=== PATIENT | male | born 2000 | race Two or more races ===

== ENCOUNTER → 2020-11-07 | Outpatient (CLI) | payer OTHER ==
--- NOTE | 2020-11-07 16:56 | REP ---
INDICATION: LOGAN OF THYROID COMPARISON: None. TECHNIQUE: Gould scale and color evaluation of the thyroid gland using the linear high frequency transducer. FINDINGS: The thyroid gland is normal in contour, shape, size, and echogenicity. No nodule/mass or cystic abnormalities are appreciated. Right thyroid lobe measures 4.9 x 1.5 x 1.3 cm. Isthmus measures 2.8 mm in width. Left thyroid lobe measures 4.5 x 1.7 x 1.1 cm. IMPRESSION: Normal thyroid ultrasound. <Electronically signed by Montana Mcallister > 11/07/20 5869
== END ==
LOC: M RAD 11:54
PROVIDERS: ATTEND Otolaryngology
DX: D44.0 Neoplasm of uncertain behavior of thyroid gland (principal)

== ENCOUNTER 2020-12-16 08:52 | Day surgery (SDC) | payer OTHER ==
[~2020-12-16] VITALS: Ht 172.7 cm; Wt 72.2 kg
[~2020-12-16 08:52] MED LIST: LR 1,000 ML IV ONE
--- OUTSIDE RECORDS SUMMARY | 2020-12-16 08:55 | CCD | Continuity of Care Document ---
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 Marshall de la fuente MD Onset: 10/24/2020 Enlargement of tonsil or adenoid Marshall Diamond MD Onset: 10/24/2020 Social History Type Date Description Comments Sex Unknown ETOH Use Denies alcohol use Tobacco Use Start: Unknown Non Smoker Recreational Drug Use Denies Drug Use Allergies and adverse reactions Description No Known Drug Allergies Medications Active Medications SIG Qnty Indications Ordering Provide r Date No Active Medications Unknown 03/2020 History Medications Augmentin 500-125mg Tablets 1 by mouth twice a day 20tabs J35.03 Marshall Diamond MD 11/13/2020 - No Active Medications Unknown 03/2020 - 11/13/2020 No Active Medications Unknown - 09/18/2020 Prednisone 10mg Tablets 2 po bid for 5 days 1 po tid for 5 days 1 po bid for 5 days 1 po q d for 5 days 50tabs Boone Huitron MD 09/18/2020 - 10/24/2020 Immunizations Description No Information Available Vital Signs Date Vital Result Comment 11/26/2020 10:41am BP Systolic 130 mmHg BP Diastolic 80 mmHg Heart Rate 64 /min O2 % BldC Oximetry 98 % Height 67 inches 5'7" Weight 163.00 lb BMI (Body Mass Index) 25.5 kg/m2 [place] Body Weight 148 lb Weight 73.937 kg BSA (Body Surface Area) 1.85 m2 11/13/2020 8:27am BP Systolic 100 mmHg BP Diastolic 70 mmHg Heart Rate 60 /min O2 % BldC Oximetry 99 % Height 67 inches 5'7" Weight 163.00 lb BMI (Body Mass Index) 25.5 kg/m2 [place] Body Weight 148 lb Weight 73.937 kg BSA (Body Surface Area) 1.85 m2 Results Description No Information Available Procedures Date Code Description Status 11/26/2020 56726 Office/Outpatient Established Mo d MDM 30-39 Min Completed 11/13/2020 41186 Office/Outpatient Established Mo d MDM 30-39 Min Completed 10/24/2020 52823 Office/Outpatient Established Lo w MDM 20-29 Min Completed 10/07/2020 96070 Office/Outpatient Established Lo w MDM 20-29 Min Completed 09/18/2020 60552 Office/Outpatient New Moderate M DM 45-59 Minutes Completed Medical Devices Description No Information Available Encounters Type Date Location Provider Dx Diagnosis Office Visit 11/26/2020 10:45a [facility] [place] J35.03 Chronic tonsillitis and adenoiditis R59.9 Enlarged lymph nodes, unspec ified Office Visit 11/13/2020 8:30a [facility] [place] J35.03 Chronic tonsillitis and adenoiditis D44.0 Neoplasm of uncertain behavi or of thyroid gland R59.9 Enlarged lymph nodes, unspec ified Office Visit 10/24/2020 1:15p [facility] [place] 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.03 Chronic tonsillitis and festus oiditis Office Visit 10/07/2020 10:00a [facility] Boone Huitron MD J35.01 Chronic tonsillitis Office Visit 09/18/2020 10:00a [facility] Boone Huitron MD J03.91 Acute recurrent tonsillitis, unspecified Assessments Date Code Description Provider 11/26/2020 J35.03 Chronic tonsillitis and adenoidi tis Marshall Diamond MD 11/26/2020 R59.9 Enlarged lymph nodes, unspecifie d Marshall Diamond MD 11/13/2020 J35.03 Chronic tonsillitis and adenoidi tis Marshall Diamond MD 11/13/2020 D44.0 Neoplasm of uncertain behavior o f thyroid gland Marshall Diamond MD 11/13/2020 R59.9 Enlarged lymph nodes, unspecifie d Marshall Diamond MD 10/24/2020 D44.0 Neoplasm of uncertain behavior o f thyroid gland Marshall Diamond MD 10/24/2020 J35.03 Chronic tonsillitis and adenoidi tis Marshall Diamond MD 10/07/2020 J35.01 Chronic tonsillitis Boone nicholson MD 09/18/2020 J03.91 Acute recurrent tonsillitis, uns pecified Boone Huitron MD Plan of Treatment Future Appointment(s):* 12/16/2020 10:45 am - Marshall Diamond MD at [facility] Functional Status Description No Information Available Mental Status Description No Information Available Referrals Refer to Reason for Referral Status Appt Date Marshall Diamond M.D. HX pharyngitis/tonsillitis Scheduled 09/18/[address] [address] [phone]
--- OUTSIDE RECORDS SUMMARY | 2020-12-16 08:55 | CCD | Continuity of Care Document ---
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 Marshall de la fuente MD Onset: 10/24/2020 Enlargement of tonsil or adenoid Marshall Diamond MD Onset: 10/24/2020 Social History Type Date Description Comments Sex Unknown ETOH Use Denies alcohol use Tobacco Use Start: Unknown Non Smoker Recreational Drug Use Denies Drug Use Allergies, Adverse Reactions, Alerts Description No Known Drug Allergies Medications Active Medications SIG Qnty Indications Ordering Provide r Date Augmentin 500-125mg Tablets 1 by mouth twice a day 20tabs J35.03 Marshall Diamond MD 11/13/2020 No Active Medications Unknown 03/2020 History Medications No Active Medications Unknown - 09/18/2020 Prednisone 10mg Tablets 2 po bid for 5 days 1 po tid for 5 days 1 po bid for 5 days 1 po q d for 5 days 50tabs Boone Huitron MD 09/18/2020 - 10/24/2020 Immunizations Description No Information Available Vital Signs Date Vital Result Comment 11/13/2020 8:27am BP Systolic 100 mmHg BP Diastolic 70 mmHg Heart Rate 60 /min O2 % BldC Oximetry 99 % Height 67 inches 5'7" Weight 163.00 lb BMI (Body Mass Index) 25.5 kg/m2 [place] Body Weight 148 lb Weight 73.937 kg BSA (Body Surface Area) 1.85 m2 10/24/2020 1:21pm BP Systolic 118 mmHg BP Diastolic 70 mmHg Heart Rate 61 /min O2 % BldC Oximetry 97 % Height 67 inches 5'7" Weight 155.00 lb BMI (Body Mass Index) 24.3 kg/m2 [place] Body Weight 148 lb Weight 70.308 kg BSA (Body Surface Area) 1.81 m2 Results Description No Information Available Procedures Date Code Description Status 10/24/2020 03344 Office/Outpatient Established Lo w MDM 20-29 Min Completed 10/07/2020 52815 Office/Outpatient Established Lo w MDM 20-29 Min Completed 09/18/2020 21772 Office/Outpatient New Moderate M DM 45-59 Minutes Completed Medical Devices Description No Information Available Encounters Type Date Location Provider Dx Diagnosis Office Visit 10/24/2020 1:15p [facility] [place] 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.03 Chronic tonsillitis and festus oiditis Office Visit 10/07/2020 10:00a [facility] Boone Huitron MD J35.01 Chronic tonsillitis Office Visit 09/18/2020 10:00a [facility] Boone Huitron MD J03.91 Acute recurrent tonsillitis, unspecified Assessments Date Code Description Provider 11/13/2020 J35.03 Chronic tonsillitis and adenoidi tis Marshall Diamond MD 11/13/2020 D44.0 Neoplasm of uncertain behavior o f thyroid gland Marshall Diamond MD 10/24/2020 D44.0 Neoplasm of uncertain behavior o f thyroid gland Marshall Diamond MD 10/24/2020 J35.03 Chronic tonsillitis and adenoidi tis Marshall Diamond MD 10/07/2020 J35.01 Chronic tonsillitis Boone nicholson MD 09/18/2020 J03.91 Acute recurrent tonsillitis, uns pecified Boone Huitron MD Plan of Treatment Future Appointment(s):* 11/26/2020 10:45 am - Marshall Diamond MD at [facility] 11/13/2020 - Marshall Diamond MD* J35.03 Chronic tonsillitis and adenoiditis* New Medication:* Augmentin 500-125 mg - 1 by mouth twice a day * Comments:* Due to the current appearance of Melvin's tonsils, we will place him on 10 days of Augmentin and follow up with him after. 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 His throat is no longer sore. I will re-evaluate in the future if this returns. Functional Status Description No Information Available Mental Status Description No Information Available Referrals Refer to Reason for Referral Status Appt Date Marshall Diamond M.D. HX pharyngitis/tonsillitis Scheduled 09/18/[address] [address] [phone]
--- OUTSIDE RECORDS SUMMARY | 2020-12-16 08:55 | CCD | Continuity of Care Document ---
Author Author Melvin DIAMOND MD Organization Unknown Address [address] [facility] [address] [place] [address] Phone [phone] Care Team Providers Care Client Services Analyst Name Role Phone Keisha Harvey Unavailable Problems [...] day 20tabs J35.03 Marshall Diamond MD 11/13/2020 History Medications No Active Medications Unknown 03/2020 - 11/13/2020 [...] lb BMI (Body Mass Index) 25.5 kg/m2 [place] Body Weight 148 lb Weight 73.937 kg BSA (Body Surface Area) 1.85 m2 10/24/2020 1:21pm BP Systolic 118 mmHg BP Diastolic 70 mmHg Heart Rate 61 /min O2 % BldC Oximetry 97 % Height 67 inches 5'7" Weight 155.00 lb BMI (Body Mass Index) 24.3 kg/m2 [place] Body Weight 148 lb Weight 70.308 kg BSA (Body Surface Area) 1.81 m2 Results Description No Information Available Procedures Date Code Description Status 11/13/2020 64861 Office/Outpatient Established Mo d MDM 30-39 Min Completed 10/24/2020 28049 Office/Outpatient Established Lo w MDM 20-29 Min Completed 10/07/2020 01316 Office/Outpatient Established Lo w MDM 20-29 Min Completed 09/18/2020 16385 Office/Outpatient New Moderate M DM 45-59 Minutes Completed Medical Devices Description No Information Available Encounters Type Date Location Provider Dx Diagnosis Office Visit 11/13/2020 8:30a [facility] [place] J35.03 Chronic tonsillitis and adenoiditis D44.0 Neoplasm of uncertain behavi or of thyroid gland R59.9 Enlarged lymph nodes, unspec ified Office Visit 10/24/2020 1:15p [facility] [place] 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 HX pharyngitis/tonsillitis Scheduled 09/18/[address] [address] [phone]
--- OUTSIDE RECORDS SUMMARY | 2020-12-16 08:55 | CCD | Continuity of Care Document ---
Author Author Melvin HUITRON MD Organization Unknown Address [address] [place] [address] Phone [phone] Care Team Providers Care Sky Cap Name Role Phone Keisha Harvey Unavailable Problems Description No Information Available Social History Type Date Description Comments Sex Unknown ETOH Use Denies alcohol use Tobacco Use Start: Unknown Non Smoker Recreational Drug Use Denies Drug Use Allergies, Adverse Reactions, Alerts Description No Known Drug Allergies Medications Active Medications SIG Qnty Indications Ordering Provide r Date Prednisone 10mg Tablets 2 po bid for 5 days 1 po tid for 5 days 1 po bid for 5 days 1 po q d for 5 days 50tabs Boone Huitron MD 09/18/2020 History Medications No Active Medications Unknown - 09/18/2020 Immunizations Description No Information Available Vital Signs Date Vital Result Comment 09/18/2020 10:12am Height 67 inches 5'7" Weight 160.00 lb BMI (Body Mass Index) 25.1 kg/m2 [place] Body Weight 148 lb Weight 72.576 kg BSA (Body Surface Area) 1.84 m2 Results Description No Information Available Procedures Date Code Description Status 09/18/2020 19757 Office/Outpatient New Moderate M DM 45-59 Minutes Completed Medical Devices Description No Information Available Encounters Type Date Location Provider Dx Diagnosis Office Visit 09/18/2020 10:00a [facility] Boone Huitron MD J03.91 Acute recurrent tonsillitis, unspecified Assessments Date Code Description Provider 09/18/2020 J03.91 Acute recurrent tonsillitis, uns pecified Boone Huitron MD Plan of Treatment Future Appointment(s):* 10/09/2020 10:00 am - Boone Huitron MD at [facility] 09/18/2020 - Boone Huitron MD* J03.91 Acute recurrent tonsillitis, unspecified * Recommendations:* Since he is just resolving a recent episode and shows signs of inflammaiton , will treat with steroids in preparation for future surgery * All * New Medication:* Prednisone 10 mg - 2 po bid for 5 days 1 po tid for 5 days 1 po bid for 5 days 1 po q d for 5 days * No Active Medications - Functional Status Description No Information Available Mental Status Description No Information Available Referrals Refer to Dr Reason for Referral Status Appt Date Boone Huitron M.D. HX pharyngitis/tonsillitis Scheduled 09/18/2020 [facility] [address] [address] [phone]
--- OUTSIDE RECORDS SUMMARY | 2020-12-16 08:55 | CCD | Continuity of Care Document ---
Author Author Melvin DIAMOND MD Organization Unknown Address [address] [facility] [address] [place] [address] Phone [phone] Care Team Providers Care Clinic Office Coordinator Name Role Phone Keisha Harvey Unavailable Problems [...] Available Vital Signs Date Vital Result Comment 10/24/2020 1:21pm BP Systolic 118 mmHg BP Diastolic 70 mmHg Heart Rate 61 /min O2 % BldC Oximetry 97 % Height 67 inches 5'7" Weight 155.00 lb BMI (Body Mass Index) 24.3 kg/m2 [place] Body Weight 148 lb Weight 70.308 kg BSA (Body Surface Area) 1.81 m2 10/07/2020 9:53am Height 67 inches 5'7" Weight 160.00 lb BMI (Body Mass Index) 25.1 kg/m2 [place] Body Weight 148 lb Weight 72.576 kg BSA (Body Surface Area) 1.84 m2 Results Description No Information Available Procedures Date Code Description Status 10/07/2020 06376 Office/Outpatient Established Lo w MDM 20-29 Min Completed 09/18/2020 70482 Office/Outpatient New Moderate M DM 45-59 Minutes Completed Medical Devices Description No Information Available Encounters Type Date Location Provider Dx Diagnosis Office Visit 10/07/2020 10:00a [facility] Boone Huitron MD J35.01 Chronic tonsillitis Office Visit 09/18/2020 10:00a [facility] Boone Huitron MD J03.91 Acute recurrent tonsillitis, unspecified Assessments Date Code Description Provider 10/24/2020 D44.0 Neoplasm of uncertain behavior o f thyroid gland Marshall Diamond MD 10/24/2020 J35.03 Chronic tonsillitis and adenoidi tis Marshall Diamond MD 10/07/2020 J35.01 Chronic tonsillitis Boone nicholson MD 09/18/2020 J03.91 Acute recurrent tonsillitis, uns pecified Boone Huitron MD Plan of Treatment 10/24/2020 - Marshall Diamond MD* 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 Today on examination we found a 1.5cm nodule in the right superior pole. We will schedule him for an ultrasound and follow up with the results. * J35.03 Chronic tonsillitis and adenoiditis* Comments:* Due to his recent infection, we discussed the importance of being infection free for 3-4 weeks prior to surgery. We will discuss this further at the ultrasound follow up appointment. Functional Status Description No Information Available Mental Status Description No Information Available Referrals Refer to Reason for Referral Status Appt Date Boone Huitron M.D. HX pharyngitis/tonsillitis Scheduled 09/18/2020 [facility] [address] [address] [phone]
--- OUTSIDE RECORDS SUMMARY | 2020-12-16 08:55 | CCD | Continuity of Care Document ---
Author Author Melvin HUITRON MD Organization Unknown Address [address] [place] [address] Phone [phone] Care Team Providers Care Director Of Clinical Trials Name Role Phone Keisha Harvey Unavailable Problems [...] Available Vital Signs Date Vital Result Comment 10/07/2020 9:53am Height 67 inches 5'7" Weight 160.00 lb BMI (Body Mass Index) 25.1 kg/m2 [place] Body Weight 148 lb Weight 72.576 kg BSA (Body Surface Area) 1.84 m2 09/18/2020 10:12am Height 67 inches 5'7" Weight 160.00 lb BMI (Body Mass Index) 25.1 kg/m2 [place] Body Weight 148 lb Weight 72.576 kg BSA (Body Surface Area) 1.84 m2 Results Description No Information Available Procedures Date Code Description Status 10/07/2020 04420 Office/Outpatient Established Lo w MDM 20-29 Min Completed 09/18/2020 27398 Office/Outpatient New Moderate M DM 45-59 Minutes Completed Medical Devices Description No Information Available Encounters Type Date Location Provider Dx Diagnosis Office Visit 10/07/2020 10:00a [facility] Boone Huitron MD J35.01 Chronic tonsillitis Office Visit 09/18/2020 10:00a [facility] Boone Huitron MD J03.91 Acute recurrent tonsillitis, unspecified Assessments Date Code Description Provider 10/07/2020 J35.01 Chronic tonsillitis Boone nicholson MD 09/18/2020 J03.91 Acute recurrent tonsillitis, uns pecified Boone Huitron MD Plan of Treatment 09/18/2020 - Boone Huitron MD* J03.91 Acute [...] Boone Huitron M.D. HX pharyngitis/tonsillitis Scheduled 09/18/2020 [facility] [address] [address] [phone]
--- OUTSIDE RECORDS SUMMARY | 2020-12-16 08:55 | CCD | Continuity of Care Document ---
Author Author Melvin DIAMOND MD Organization Unknown Address [address] [facility] [address] [place] [address] Phone [phone] Care Team Providers Care Boat Repairer Name Role Phone Keisha Harvey Unavailable Problems [...] lb BMI (Body Mass Index) 25.5 kg/m2 [place] Body Weight 148 lb Weight 73.937 kg BSA (Body Surface Area) 1.85 m2 11/13/2020 8:27am BP Systolic 100 mmHg BP Diastolic 70 mmHg Heart Rate 60 /min O2 % BldC Oximetry 99 % Height 67 inches 5'7" Weight 163.00 lb BMI (Body Mass Index) 25.5 kg/m2 [place] Body Weight 148 lb Weight 73.937 kg BSA (Body Surface Area) 1.85 m2 Results Description No Information Available Procedures Date Code Description Status 11/26/2020 19974 Office/Outpatient Established Mo d MDM 30-39 Min Completed 11/13/2020 74749 Office/Outpatient Established Mo d MDM 30-39 Min Completed 10/24/2020 20089 Office/Outpatient Established Lo w MDM 20-29 Min Completed 10/07/2020 34390 Office/Outpatient Established Lo w MDM 20-29 Min Completed 09/18/2020 65799 Office/Outpatient New Moderate M DM 45-59 Minutes Completed Medical Devices Description No Information Available Encounters Type Date Location Provider Dx Diagnosis Office Visit 11/26/2020 10:45a [facility] [place] J35.03 Chronic tonsillitis and adenoiditis R59.9 Enlarged lymph nodes, unspec ified Office Visit 11/13/2020 8:30a [facility] [place] J35.03 Chronic tonsillitis and adenoiditis D44.0 Neoplasm of uncertain behavi or of thyroid gland R59.9 Enlarged lymph nodes, unspec ified Office Visit 10/24/2020 1:15p [facility] [place] 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 HX pharyngitis/tonsillitis Scheduled 09/18/[address] [address] [phone]
--- OUTSIDE RECORDS SUMMARY | 2020-12-16 08:55 | CCD | Continuity of Care Document ---
Author Author Melvin DIAMOND MD Organization Unknown Address [address] [facility] [address] [place] [address] Phone [phone] Care Team Providers Care Finished Cloth Checker Name Role Phone Keisha Harvey Unavailable Problems [...] po q d for 5 days 50tabs oBone Huitron MD 09/18/2020 - 10/24/2020 Immunizations Description No Information Available Vital Signs Date Vital Result Comment 11/26/2020 10:41am BP Systolic 130 mmHg BP Diastolic 80 mmHg Heart Rate 64 /min O2 % BldC Oximetry 98 % Height 67 inches 5'7" Weight 163.00 lb BMI (Body Mass Index) 25.5 kg/m2 [place] Body Weight 148 lb Weight 73.937 kg BSA (Body Surface Area) 1.85 m2 11/13/2020 8:27am BP Systolic 100 mmHg BP Diastolic 70 mmHg Heart Rate 60 /min O2 % BldC Oximetry 99 % Height 67 inches 5'7" Weight 163.00 lb BMI (Body Mass Index) 25.5 kg/m2 [place] Body Weight 148 lb Weight 73.937 kg BSA (Body Surface Area) 1.85 m2 Results Description No Information Available Procedures Date Code Description Status 11/26/2020 30391 Office/Outpatient Established Mo d MDM 30-39 Min Completed 11/13/2020 56136 Office/Outpatient Established Mo d MDM 30-39 Min Completed 10/24/2020 30076 Office/Outpatient Established Lo w MDM 20-29 Min Completed 10/07/2020 02099 Office/Outpatient Established Lo w MDM 20-29 Min Completed 09/18/2020 97598 Office/Outpatient New Moderate M DM 45-59 Minutes Completed Medical Devices Description No Information Available Encounters Type Date Location Provider Dx Diagnosis Office Visit 11/26/2020 10:45a [facility] [place] J35.03 Chronic tonsillitis and adenoiditis R59.9 Enlarged lymph nodes, unspec ified Office Visit 11/13/2020 8:30a [facility] [place] J35.03 Chronic tonsillitis and adenoiditis D44.0 Neoplasm of uncertain behavi or of thyroid gland R59.9 Enlarged lymph nodes, unspec ified Office Visit 10/24/2020 1:15p [facility] [place] 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 HX pharyngitis/tonsillitis Scheduled 09/18/[address] [address] [phone]
--- OUTSIDE RECORDS SUMMARY | 2020-12-16 08:55 | CCD | Continuity of Care Document ---
Author Author Melvin HUITRON MD Organization Unknown Address [address] [place] [address] Phone [phone] Care Team Providers Care System Controller Name Role Phone Keisha Harvey Unavailable Problems [...] lb BMI (Body Mass Index) 25.1 kg/m2 [place] Body Weight 148 lb Weight 72.576 kg BSA (Body Surface Area) 1.84 m2 Results Description No Information Available Procedures Description No Information Available Medical Devices Description No Information Available Encounters Description No Information Available Assessments Description No Information Available Plan of Treatment Future Appointment(s):* 10/09/2020 10:00 am - Boone Huitron MD at [facility] 09/18/2020 - Boone Huitron MD* All * New Medication:* Prednisone 10 mg [...] Boone Huitron M.D. HX pharyngitis/tonsillitis Scheduled 09/18/2020 [facility] [address] [facility] [address] [place] [address] [phone]
--- OUTSIDE RECORDS SUMMARY | 2020-12-16 08:55 | CCD | Continuity of Care Document ---
Author Author Melvin DIAMOND MD Organization Unknown Address [address] [facility] [address] [place] [address] Phone [phone] Care Team Providers Care Lumber Estimator Name Role Phone Keisha Harvey Unavailable Problems [...] lb BMI (Body Mass Index) 24.3 kg/m2 [place] Body Weight 148 lb Weight 70.308 kg BSA (Body Surface Area) 1.81 m2 10/07/2020 9:53am Height 67 inches 5'7" Weight 160.00 lb BMI (Body Mass Index) 25.1 kg/m2 [place] Body Weight 148 lb Weight 72.576 kg BSA (Body Surface Area) 1.84 m2 Results Description No Information Available Procedures Date Code Description Status 10/24/2020 32482 Office/Outpatient Established Lo w MDM 20-29 Min Completed 10/07/2020 82557 Office/Outpatient Established Lo w MDM 20-29 Min Completed 09/18/2020 13253 Office/Outpatient New Moderate M DM 45-59 Minutes Completed Medical Devices Description No Information Available Encounters Type Date Location Provider Dx Diagnosis Office Visit 10/24/2020 1:15p [facility] [place] 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.03 Chronic tonsillitis and festus oiditis Office Visit 10/07/2020 10:00a [facility] Boone Huitron MD J35.01 Chronic tonsillitis Office Visit 09/18/2020 10:00a [facility] Boone Huitron MD J03.91 Acute recurrent tonsillitis, unspecified Assessments Date Code Description Provider 10/24/2020 D44.0 Neoplasm of uncertain behavior o f thyroid gland [place] Diamond MD 10/24/2020 J35.03 Chronic tonsillitis and adenoidi tis Marshall Diamond MD 10/07/2020 J35.01 Chronic tonsillitis Boone nicholson MD 09/18/2020 J03.91 Acute recurrent tonsillitis, uns pecified Boone Huitron MD Plan of Treatment Future Appointment(s):* 11/14/2020 1:30 pm - [place] Diamond MD at [facility] Functional Status Description No Information Available Mental Status Description No Information Available Referrals Refer to Reason for Referral Status Appt Date Boone Huitron M.D. HX pharyngitis/tonsillitis Scheduled 09/18/2020 [facility] [address] [address] [phone]
--- OUTSIDE RECORDS SUMMARY | 2020-12-16 08:55 | CCD | Continuity of Care Document ---
Author Author Melvin DIAMOND MD Organization Unknown Address [address] [facility] [address] [place] [address] Phone [phone] Care Team Providers Care Manager [place] Name Role Phone Keisha Harvey Unavailable Problems [...] lb BMI (Body Mass Index) 25.5 kg/m2 [place] Body Weight 148 lb Weight 73.937 kg BSA (Body Surface Area) 1.85 m2 11/13/2020 8:27am BP Systolic 100 mmHg BP Diastolic 70 mmHg Heart Rate 60 /min O2 % BldC Oximetry 99 % Height 67 inches 5'7" Weight 163.00 lb BMI (Body Mass Index) 25.5 kg/m2 [place] Body Weight 148 lb Weight 73.937 kg BSA (Body Surface Area) 1.85 m2 Results Description No Information Available Procedures Date Code Description Status 11/26/2020 83244 Office/Outpatient Established Mo d MDM 30-39 Min Completed 11/13/2020 88874 Office/Outpatient Established Mo d MDM 30-39 Min Completed 10/24/2020 25383 Office/Outpatient Established Lo w MDM 20-29 Min Completed 10/07/2020 93684 Office/Outpatient Established Lo w MDM 20-29 Min Completed 09/18/2020 88316 Office/Outpatient New Moderate M DM 45-59 Minutes Completed Medical Devices Description No Information Available Encounters Type Date Location Provider Dx Diagnosis Office Visit 11/26/2020 10:45a [facility] [place] J35.03 Chronic tonsillitis and adenoiditis R59.9 Enlarged lymph nodes, unspec ified Office Visit 11/13/2020 8:30a [facility] [place] J35.03 Chronic tonsillitis and adenoiditis D44.0 Neoplasm of uncertain behavi or of thyroid gland R59.9 Enlarged lymph nodes, unspec ified Office Visit 10/24/2020 1:15p [facility] [place] 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 HX pharyngitis/tonsillitis Scheduled 09/18/[address] [address] [phone]
--- OUTSIDE RECORDS SUMMARY | 2020-12-16 08:55 | CCD | Continuity of Care Document ---
Author Author Melvin DIAMOND MD Organization Unknown Address [address] [facility] [address] [place] [address] Phone [phone] Care Team Providers Care Healthcare Architect Name Role Phone Keisha Harvey Unavailable Problems [...] q d for 5 days 50tabs Boone Hiutron MD 09/18/2020 - 10/24/2020 Immunizations Description No Information Available Vital Signs Date Vital Result Comment 11/26/2020 10:41am BP Systolic 130 mmHg BP Diastolic 80 mmHg Heart Rate 64 /min O2 % BldC Oximetry 98 % Height 67 inches 5'7" Weight 163.00 lb BMI (Body Mass Index) 25.5 kg/m2 [place] Body Weight 148 lb Weight 73.937 kg BSA (Body Surface Area) 1.85 m2 11/13/2020 8:27am BP Systolic 100 mmHg BP Diastolic 70 mmHg Heart Rate 60 /min O2 % BldC Oximetry 99 % Height 67 inches 5'7" Weight 163.00 lb BMI (Body Mass Index) 25.5 kg/m2 [place] Body Weight 148 lb Weight 73.937 kg BSA (Body Surface Area) 1.85 m2 Results Description No Information Available Procedures Date Code Description Status 11/26/2020 60817 Office/Outpatient Established Mo d MDM 30-39 Min Completed 11/13/2020 23947 Office/Outpatient Established Mo d MDM 30-39 Min Completed 10/24/2020 96013 Office/Outpatient Established Lo w MDM 20-29 Min Completed 10/07/2020 04418 Office/Outpatient Established Lo w MDM 20-29 Min Completed 09/18/2020 11061 Office/Outpatient New Moderate M DM 45-59 Minutes Completed Medical Devices Description No Information Available Encounters Type Date Location Provider Dx Diagnosis Office Visit 11/26/2020 10:45a [facility] [place] J35.03 Chronic tonsillitis and adenoiditis R59.9 Enlarged lymph nodes, unspec ified Office Visit 11/13/2020 8:30a [facility] [place] J35.03 Chronic tonsillitis and adenoiditis D44.0 Neoplasm of uncertain behavi or of thyroid gland R59.9 Enlarged lymph nodes, unspec ified Office Visit 10/24/2020 1:15p [facility] [place] 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 HX pharyngitis/tonsillitis Scheduled 09/18/[address] [address] [phone]
--- OUTSIDE RECORDS SUMMARY | 2020-12-16 08:55 | CCD | Continuity of Care Document ---
Author Author Melvin HUITRON MD Organization Unknown Address [address] [place] [address] Phone [phone] Care Team Providers Care Parachute Taper Name Role Phone Keisha Harvey Unavailable Problems [...] lb BMI (Body Mass Index) 25.1 kg/m2 [place] Body Weight 148 lb Weight 72.576 kg BSA (Body Surface Area) 1.84 m2 09/18/2020 10:12am Height 67 inches 5'7" Weight 160.00 lb BMI (Body Mass Index) 25.1 kg/m2 [place] Body Weight 148 lb Weight 72.576 kg BSA (Body Surface Area) 1.84 m2 Results Description No Information Available Procedures Date Code Description Status 09/18/2020 85417 Office/Outpatient New Moderate M DM 45-59 Minutes Completed Medical Devices Description No Information Available Encounters Type Date Location Provider Dx Diagnosis Office Visit 09/18/2020 10:00a [facility] Boone Huitron MD J03.91 [...] Boone Huitron M.D. HX pharyngitis/tonsillitis Scheduled 09/18/2020 [facility] [address] [address] [phone]
--- OUTSIDE RECORDS SUMMARY | 2020-12-16 08:56 | CCD ---
Author Author [facility] Organization [facility] Address Unknown Phone Unavailable Care Team Providers Care Enrollment Nurse Name Role Phone Abrsantiago, Opal Shook MD Unavailable Unavailable Abriss, Opal Shook MD Unavailable Unavailable Abriss, Opal Shook MD Unavailable Unavailable Abriss, Opal Shook MD Unavailable Unavailable Abriss, Opal Shook MD Unavailable Unavailable Abriss, Opal Shook MD Unavailable Unavailable Abriss, Opal Shook MD Unavailable Unavailable Abriss, pOal Shook MD Unavailable Unavailable Abriss, Opal Shook MD Unavailable Unavailable Abriss, Opal Shook MD Unavailable Unavailable Abriss, Opal Shook MD Unavailable Unavailable Abriss, Opal Shook MD Unavailable Unavailable Abriss, Opal Shook MD Unavailable Unavailable Abriss, Opal Shook MD Unavailable Unavailable Abriss, Opal Shook MD Unavailable Unavailable Abriss, Opal Shook MD Unavailable Unavailable Abriss, Opal Shook MD Unavailable Unavailable Abriss, Opal Shook MD Unavailable Unavailable Abriss, Opal Shook MD Unavailable Unavailable Steven Diamond PH.D., M.D. Unavailable Unavailable Steven Diamond PH.D., M.D. Unavailable Unavailable Steven Diamond PH.D., M.D. Unavailable Unavailable Steven Diamond PH.D., M.D. Unavailable Unavailable Steven Diamond PH.D., M.D. Unavailable Unavailable Steven Diamond PH.D., M.D. Unavailable Unavailable Steven Diamond PH.D., M.D. Unavailable Unavailable Steven Diamond PH.D., M.D. Unavailable Unavailable Steven Diamond PH.D., M.D. Unavailable Unavailable Steven Diamond PH.D., M.D. Unavailable Unavailable Steven Diamond PH.D., M.D. Unavailable Unavailable Steven Diamond PH.D., M.D. Unavailable Unavailable Lobo, C Marshall PH.D., M.D. Unavailable Unavailable Lobo, C Marshall PH.D., M.D. Unavailable Unavailable Lobo, C Marshall PH.D., M.D. Unavailable Unavailable Lobo, C Marshall PH.D., M.D. Unavailable Unavailable Lobo, C Marshall PH.D., M.D. Unavailable Unavailable Lobo, C Marshall PH.D., M.D. Unavailable Unavailable Lobo, C Marshall PH.D., M.D. Unavailable Unavailable Lobo, C Marshall PH.D., M.D. Unavailable Unavailable Lobo, C Marshall PH.D., M.D. Unavailable Unavailable Lobo, C Marshall PH.D., M.D. Unavailable Unavailable Lobo, C Marshall PH.D., M.D. Unavailable Unavailable Lobo, C Marshall PH.D., M.D. Unavailable Unavailable Lobo, C Marshall PH.D., M.D. Unavailable Unavailable Lobo, C Marshall PH.D., M.D. Unavailable Unavailable Lobo, C Marshall PH.D., M.D. Unavailable Unavailable Lobo, C Marshall PH.D., M.D. Unavailable Unavailable Lobo, C Marshall PH.D., M.D. Unavailable Unavailable Loob, C Marshall PH.D., M.D. Unavailable Unavailable Lobo, C Marshall PH.D., M.D. Unavailable Unavailable Lobo, C Marshall PH.D., M.D. Unavailable Unavailable Lobo, C Marshall PH.D., M.D. Unavailable Unavailable Lobo, C Marshall PH.D., M.D. Unavailable Unavailable Lobo, C Marshall PH.D., M.D. Unavailable Unavailable Lobo, C Marshall PH.D., M.D. Unavailable Unavailable Lobo, C Marshall PH.D., M.D. Unavailable Unavailable Loob, C Marshall PH.D., M.D. Unavailable Unavailable Lobo, C Marshall PH.D., M.D. Unavailable Unavailable Lobo, C Marshall PH.D., M.D. Unavailable Unavailable Lobo, C Marshall PH.D., M.D. Unavailable Unavailable Lobo, C Marshall PH.D., M.D. Unavailable Unavailable Lobo, C Marshall PH.D., M.D. Unavailable Unavailable Lobo, C Marshall PH.D., M.D. Unavailable Unavailable Lobo, C Marshall PH.D., M.D. Unavailable Unavailable Lobo, C Marshall PH.D., M.D. Unavailable Unavailable Lobo, C Marshall PH.D., M.D. Unavailable Unavailable Lobo, C Marshall PH.D., M.D. Unavailable Unavailable Lobo, C Marshall PH.D., M.D. Unavailable Unavailable Lobo, C Marshall PH.D., M.D. Unavailable Unavailable Lobo, C Marshall PH.D., M.D. Unavailable Unavailable Lobo, C Marshall PH.D., M.D. Unavailable Unavailable Lobo, C Marshall PH.D., M.D. Unavailable Unavailable Lobo, C Marshall PH.D., M.D. Unavailable Unavailable Lobo, C Marshall PH.D., M.D. Unavailable Unavailable Lobo, C Marshall PH.D., M.D. Unavailable Unavailable Lobo, C Marshall PH.D., M.D. Unavailable Unavailable Lobo, C Marshall PH.D., M.D. Unavailable Unavailable Lobo, C Marshall PH.D., M.D. Unavailable Unavailable Lobo, C Marshall PH.D., M.D. Unavailable Unavailable Lobo, C Marshall PH.D., M.D. Unavailable Unavailable Lobo, C Marshall PH.D., M.D. Unavailable Unavailable Lobo, C Marshall PH.D., M.D. Unavailable Unavailable Lobo, C Marshall PH.D., M.D. Unavailable Unavailable Lobo, C Marshall PH.D., M.D. Unavailable Unavailable Lobo, C Marshall PH.D., M.D. Unavailable Unavailable Lobo, C Marshall PH.D., M.D. Unavailable Unavailable Lobo, C Marshall PH.D., M.D. Unavailable Unavailable Lobo, C Marshall PH.D., M.D. Unavailable Unavailable Lobo, C Marshall PH.D., M.D. Unavailable Unavailable Lobo, C Marshall PH.D., M.D. Unavailable Unavailable Lobo, C Marshall PH.D., M.D. Unavailable Unavailable Lobo, C Marshall PH.D., M.D. Unavailable Unavailable Lobo, C Marshall PH.D., M.D. Unavailable Unavailable Lobo, C Marshall PH.D., M.D. Unavailable Unavailable Lobo, C Marshall PH.D., M.D. Unavailable Unavailable Lobo, C Marshall PH.D., M.D. Unavailable Unavailable Lobo, C Marshall PH.D., M.D. Unavailable Unavailable Lobo, C Marshall PH.D., M.D. Unavailable Unavailable Lobo, C Marshall PH.D., MNatasha. Unavailable Unavailable Steven Diamond PHNatasha., MNatasha. Unavailable Unavailable Steven Diamond PHCarmella, MNatasha. Unavailable Unavailable Re-disclosure Warning The records that you are about to access may contain information from federally-assisted alcohol or drug abuse programs. If such information is present, then the following federally mandated warning applies: This information has been disclosed to you from records protected by federal confidentiality rules (42 CFR part 2). The federal rules prohibit you from making any further disclosure of this information unless further disclosure is expressly permitted by the written consent of the person to whom it pertains or as otherwise permitted by 42 CFR part 2. A general authorization for the release of medical or other information is NOT sufficient for this purpose. The Federal rules restrict any use of the information to criminally investigate or prosecute any alcohol or drug abuse patient.The records that you are about to access may contain highly sensitive health information, the redisclosure of which is protected by Article 27-F of the [facility] Public Health law. If you continue you may have access to information: Regarding HIV / AIDS; Provided by facilities licensed or operated by the [facility] Office of Mental Health; or Provided by the [facility] Office for People With Developmental Disabilities. If such information is present, then the following [facility] mandated warning applies: This information has been disclosed to you from confidential records which are protected by state law. State law prohibits you from making any further disclosure of this information without the specific written consent of the person to whom it pertains, or as otherwise permitted by law. Any unauthorized further disclosure in violation of state law may result in a fine or custodial sentence or both. A general authorization for the release of medical or other information is NOT sufficient authorization for further disc losure. Encounters Encounter Providers Location Date Indications Data Source(s ) Outpatient Attender: Mariana Knapp PH.D./Abelino 11/26/2020 10:45:00 AM EDT [facility] ([facility] Outpatient Attender: Mariana Knapp PH.D./Abelino 11/13/2020 08:30:00 AM EDT [facility] ([facility]) Outpatient Attender: Marshall Diamond PH.D., M.D. Melanie/Josephine/Nini sahu/Abelino 10/24/2020 01:15:00 PM EDT [facility] ([facility]) Outpatient Attender: Boone Navarro/Josephine/Jamie/Re indl 10/07/2020 10:00:00 AM EDT [facility] ([facility]) Outpatient Attender: Boone Navarro/[place]/Jamie/Re indl 09/18/2020 10:00:00 AM EDT [facility] ([facility]) Medications Medication Brand Name Start Date Product Form Dose Route Admi nistrative Instructions Pharmacy Instructions Status Indications Reaction Description Data Source(s) No Active Medications 11/23/2020 12:00:00 AM EDT active [facility] ([facility]) Amoxicillin 500 MG / Clavulanate 125 MG Oral Tablet [Augment in] Augmentin 11/13/2020 12:00:00 AM EDT ORAL completed [facility] ([facility]) No Active Medications 10/24/2020 12:00:00 AM EDT completed [facility] ([facility]) Prednisone 10 MG Oral Tablet Prednisone 09/18/2020 12:00:00 AM EDT ORAL completed [facility] ([facility]) No Active Medications 09/18/2020 12:00:00 AM EDT completed [facility] ([facility]) Insurance Providers Payer name Policy type / Coverage type Policy ID Covered republican ID Covered republican's relationship to ramirez Policy Ramirez Plan Information [facility] [id number] SP [id number] [facility] [id number] SP [id number] Problems, Conditions, and Diagnoses Code Display Name Description Problem Type Effective Dates Data Source(s) R59.9 Lymphadenopathy Lymphadenopathy Problem 11/13/2020 12:0 0:00 AM EDT [facility] ([facility]) J35.3 Enlargement of tonsil or adenoid Enlargement of tonsil or adenoid Problem 10/24/2020 12:00:00 AM EDT [facility] ([facility]) D44.0 Neoplasm of uncertain behavior of endocr ine gland Neoplasm of uncertain behavior of endocrine gland Problem 10/24/2020 12:00:00 AM EDT [facility] ([facility]) J35.03 Chronic adenotonsillitis Chronic adenotonsillitis Prob roge 10/24/2020 12:00:00 AM ED[facility] Surgeries/Procedures Procedure Description Date Indications Data Source(s) OFFICE OUTPATIENT VISIT 25 MINUTES 11/26/2020 12:00:00 AM EDT [facility] OFFICE OUTPATIENT VISIT 25 MINUTES 11/13/2020 12:00:00 AM EDT [facility] ([facility]) OFFICE OUTPATIENT VISIT 15 MINUTES 10/24/2020 12:00:00 AM EDT [facility] ([facility]) OFFICE OUTPATIENT VISIT 15 MINUTES 10/07/2020 12:00:00 AM EDT [facility] ([facility]) OFFICE OUTPATIENT NEW 45 MINUTES 09/18/2020 12:00:00 A M EDT [facility] ([facility]) Results ID Date Data Source [id number] 12/11/2020 11:11:00 AM [facility] Name Value Range Interpretation Code Description Data Jackie rce(s) Supporting Document(s) SARS coronavirus 2 RNA Not Detected [facility] [place] This lab was ordered by [facility] and reported by [facility]. Procedure Social History No Information Vital Signs ID Date Data Source UNK Name Value Range Interpretation Code Description Data Source(s) Systolic blood pressure 130 mm[Hg] 130 mm[Hg] [facility] Diastolic blood pressure 80 mm[Hg] 80 mm[Hg] [facility] ([facility]) Heart rate 64 /min 64 /min [facility] ([facility]) Oxygen saturation in Arterial blood by Pulse oximetry 98 % 98 % [facility] ([facility]) Body height 67 [in_i] 67 [in_i] [facility] ([facility]) 5'7" Body weight 163.00 [lb_av] 163.00 [lb_av] [facility] ([facility]) Body weight 73.937 kg 73.937 kg [facility] ([facility]) Body surface area Derived from formula 1.85 m2 1.85 m2 [facility] ([facility]) Body mass index (BMI) [Ratio] 25.5 kg/m2 25.5 k g/m2 [facility] ([facility]) [place] body weight 148 [lb_av] 148 [lb_av] [facility] ([facility]) Systolic blood pressure 100 mm[Hg] 100 mm[Hg] M [facility] ([facility]) Diastolic blood pressure 70 mm[Hg] 70 mm[Hg] [facility] ([facility]) Heart rate 60 /min 60 /min [facility] ([facility]) Oxygen saturation in Arterial blood by Pulse oximetry 99 % 99 % [facility] ([facility]) Body height 67 [in_i] 67 [in_i] [facility] ([facility]) 5'7" Body weight 163.00 [lb_av] 163.00 [lb_av] [facility] ([facility]) Body mass index (BMI) [Ratio] 25.5 kg/m2 25.5 k g/m2 [facility] ([facility]) [place] body weight 148 [lb_av] 148 [lb_av] [facility] ([facility]) Body weight 73.937 kg 73.937 kg [facility] ([facility]) Body surface area Derived from formula 1.85 m2 1.85 m2 [facility] ([facility]) Systolic blood pressure 118 mm[Hg] 118 mm[Hg] [facility] Oxygen saturation in Arterial blood by Pulse oximetry 97 % 97 % [facility] ([facility]) Diastolic blood pressure 70 mm[Hg] 70 mm[Hg] [facility] ([facility]) Heart rate 61 /min 61 /min [facility] ([facility]) Body height 67 [in_i] 67 [in_i] [facility] ([facility]) 5'7" Body weight 155.00 [lb_av] 155.00 [lb_av] [facility] ([facility]) Body mass index (BMI) [Ratio] 24.3 kg/m2 24.3 k g/m2 [facility] [place] body weight 148 [lb_av] 148 [lb_av] [facility] ([facility]) Body weight 70.308 kg 70.308 kg [facility] Body surface area Derived from formula 1.81 m2 1.81 m2 [facility] ([facility]) Body surface area Derived from formula 1.84 m2 1.84 m2 [facility] ([facility]) Body height 67 [in_i] 67 [in_i] [facility] ([facility]) 5'7" Body weight 160.00 [lb_av] 160.00 [lb_av] [facility] ([facility]) Body mass index (BMI) [Ratio] 25.1 kg/m2 25.1 k g/m2 [facility] ([facility]) [place] body weight 148 [lb_av] 148 [lb_av] [facility] ([facility]) Body weight 72.576 kg 72.576 kg [facility] Body weight 72.576 kg 72.576 kg [facility] ([facility]) Body surface area Derived from formula 1.84 m2 1.84 m2 [facility] ([facility]) Body weight 160.00 [lb_av] 160.00 [lb_av] [facility] ([facility]) Body mass index (BMI) [Ratio] 25.1 kg/m2 25.1 k g/m2 [facility] Body height 67 [in_i] 67 [in_i] [facility] ([facility]) 5'7" [place] body weight 148 [lb_av] 148 [lb_av] [facility] ([facility])
[2020-12-16] MEDS ORDERED: SCOPOLAMINE 1MG TRANSDERMAL PATCH TOP ONE (09:35)
[2020-12-16] MEDS ORDERED: BUPIVACAINE/EPIN 0.5% 30 ML VIAL As Ordered ONE (09:59)
[2020-12-16] MEDS ORDERED: SUGAMMADEX SODIUM 500 MG/5 ML VIAL (BRIDION) As Ordered ONE (10:30)
[2020-12-16] MEDS ORDERED: ONDANSETRON 4MG/2ML VIAL As Ordered ONE ×2 (10:30→11:28)
[2020-12-16] MEDS ORDERED: ROCURONIUM BROMIDE 50 MG/5 ML VIAL As Ordered ONE (10:30)
[2020-12-16] MEDS ORDERED: propofoL 200 MG/20 ML VIAL As Ordered ONE (10:30)
[2020-12-16] MEDS ORDERED: ACETAMINOPHEN 1000MG 100ML IV BTL (OFIRMEV) (J0131 PER 10MG) As Ordered ONE (10:30)
[2020-12-16] MEDS ORDERED: dexameTHASONE 4 MG/ML 1ML VIAL (J1100 PER 1MG) As Ordered ONE (10:30)
[2020-12-16] MEDS ORDERED: fentaNYL 250 MCG/5 ML INJECTION (J3010) As Ordered ONE (10:30)
[2020-12-16] MEDS ORDERED: LIDOCAINE 2% 100MG/5ML SDV (FOR ANES.) As Ordered ONE (10:30)
[2020-12-16] MEDS ORDERED: MIDAZOLAM INJ 2MG/2ML VIAL (J2250 PER 1MG) As Ordered ONE (10:30)
[2020-12-16] MEDS ORDERED: ONDANSETRON 4MG/2ML VIAL IV PRN (11:25)
[2020-12-16] MEDS ORDERED: LR 1,000 ML IV SCH ×2 (11:25→11:35)
[2020-12-16] MEDS ORDERED: fentaNYL 100 MCG/2 ML INJECTION (J3010) IV PRN (11:25)
[2020-12-16] MEDS ORDERED: oxyCODONE 5MG TAB PO PRN (11:25)
[2020-12-16] MEDS ORDERED: HYDROcodone/APAP LIQUID 7.5-325MG 15ML UDC (LORTAB ELIXIR) PO PRN (11:35)
--- NOTE | 2020-12-16 11:52 | ROOPDOC ---
[facility] Report Of Operation Report of Operation DATE OF PROCEDURE: 12/16/20 PREPROCEDURE DIAGNOSES: Chronic adenotonsillitis. POSTPROCEDURE DIAGNOSES: Same. PROCEDURE PERFORMED: Tonsillectomy and adenoidectomy. SURGEON: MD Lobo INTERNAL CONTROLS CONSULTANT: Anderson PHIPPS ANESTHESIA: General. ESTIMATED BLOOD LOSS: Approximately less than 5 mL. COMPLICATIONS: None REMARKS: . FINDINGS: SPECIMENS REMOVED: Right and left PROCEDURE NOTE: Patient was seen in the office and diagnosed with chronic adenotonsillitis. The decision was made in consultation with the patient and/or their parents to undergo the above-named procedure. The risks and benefits of surgery were explained, including alternatives to the surgery, informed consent was obtained. The patient was admitted through the same-day surgery program and taken to the operating room where general anesthetic was administered via intravenous injection. The patient was then intubated endotracheally. Tonsil gag was placed in the mouth and expanded. This was secured to a Walton stand. Red rubber catheter was placed through the nose and in the oropharynx for smoke evacuation. Right tonsil was grasped and an Allis forceps was retracted medially. Using electrocautery, the capsule was identified laterally. Tonsil was then removed from its fossa in an inferior to superior fashion. Once this was completed, several areas were cauterized using suction cautery. The left tonsil was then grasped with an Allis forceps and retracted medially. Using electrocautery, the capsule was identified laterally. Tonsil was removed from its fossa and inferior to superior fashion. Once this was completed, the bed was inspected, and any bleeding areas were cauterized using suction cautery. The red rubber catheter was then brought out through the mouth and secured with a snap. This was done to elevate the palate. A laryngeal mirror was placed in the nasopharynx and the adenoid tissue was visualized. Using suction cautery, adenoid tissue was removed in a systematic fashion. Once this was completed, 3 tonsil sponges were soaked in 0.5% Marcaine with epinephrine, one was placed in the nasopharynx and one in each tonsil bed. These were left in position for several minutes and then removed. The beds were inspected and hemostasis was ensured. We then released the tonsil gag and removed it from the mouth. The TMJ joint was checked. The patient was then allowed to recover from anesthesia and taken to the postanesthesia care area in stable condition. There were no complications during the procedure. DESCRIPTION OF PROCEDURE: . Marshall Diamond MD Dec 16, 2020 11:52
[2020-12-16 12:52] VITALS: BP 123/79
== END 2020-12-16 12:54 | disposition home or self-care (01) ==
LOC: M SDC 08:52
PROVIDERS: ATTEND Otolaryngology
DX: J35.03 Chronic tonsillitis and adenoiditis (principal); R59.9 Enlarged lymph nodes, unspecified; F41.9 Anxiety disorder, unspecified
CPT/HCPCS: 42821; 88305; J0131; J1100; J2250; J2405; J3010